=== PATIENT | female | born 1990 | race Asian ===

== ENCOUNTER 2017-01-24 13:24 | Emergency (ER) | payer OTHER ==
[2017-01-24] MEDS ORDERED: IBUPROFEN 400 MG TABLET PO STA (15:23)
[2017-01-24] MEDS ORDERED: IBUPROFEN 400 MG TABLET PO ONE (15:30)
== END 2017-01-24 17:35 | disposition home or self-care (01) ==
DX: S93.402A Sprain of unspecified ligament of left ankle, initial encounter (principal); S93.602A Unspecified sprain of left foot, initial encounter; X50.1XXA Overexertion from prolonged static or awkward postures, initial encounter; Y93.68 Activity, volleyball (beach) (court); Y92.318 Other athletic court as the place of occurrence of the external cause; Y99.8 Other external cause status
CPT/HCPCS: 73610; 73630; 99283; A9270